=== PATIENT | male | born 1975 | race Caucasian/White ===

== ENCOUNTER 2017-08-05 09:22 | Emergency (ER) | payer OTHER ==
[~2017-08-05] VITALS: Ht 180.3 cm; Wt 84.1 kg
[2017-08-05] MEDS ORDERED: FLUTICASONE PRO16 GM BOTH NARES (10:54)
[2017-08-05] MEDS ORDERED: NAPROSYN500 MG PO (11:57)
[2017-08-05 12:11] VITALS: BP 125/73
== END 2017-08-05 12:14 | disposition home or self-care (01) ==
LOC: EME 09:22
DX: M54.9 Dorsalgia, unspecified (principal); W22.8XXA Striking against or struck by other objects, initial encounter; Y99.0 Civilian activity done for income or pay; Z98.1 Arthrodesis status; F17.200 Nicotine dependence, unspecified, uncomplicated
CPT/HCPCS: 72100; 99281; 99285